=== PATIENT | male | born 1980 | race Caucasian/White ===

== ENCOUNTER 2024-03-03 21:38 | Emergency (ER) | payer OTHER ==
[~2024-03-03] VITALS: Ht 182.9 cm; Wt 166.9 kg
[2024-03-03 21:46] VITALS: BP 172/86; PULSE 91; RESP 14; TEMP 97.7; O2SAT 99
[2024-03-03] MEDS ORDERED: IBUP-2213 PO (23:23)
[2024-03-03] MEDS ORDERED: ACET-10509 PO (23:23)
[2024-03-03] MEDS ORDERED: METH-1681 PO (23:23)
[2024-03-03] MEDS ORDERED: LID5T TP (23:23)
[2024-03-03] MEDS: ACETAMINOPHEN EXTRA STRENGTH 500 MG TAB PO ONE (23:28)
[2024-03-03] MEDS: LIDOCAINE 5% 1 EA PATCH TP ONE (23:29)
[2024-03-03] MEDS: KETOROLAC 30 MG/ML VIAL IM ONE (23:29)
[2024-03-03 23:37] VITALS: BP 172/86; PULSE 91; RESP 14; TEMP 97.7; O2SAT 99
== END 2024-03-03 23:37 | disposition home or self-care (01) ==
LOC: MED 21:38
DX: M54.9 Dorsalgia, unspecified (principal); Z76.0 Encounter for issue of repeat prescription; I10 Essential (primary) hypertension; Z79.899 Other long term (current) drug therapy
CPT/HCPCS: 96372; 99283; J1885